=== PATIENT | female | born 1995 | race Caucasian/White ===

== ENCOUNTER 2018-10-14 19:08 | Emergency (ER) | payer OTHER ==
[~2018-10-14] VITALS: Ht 160 cm; Wt 72.6 kg
[2018-10-14 19:10] VITALS: BP 112/76
--- NOTE | 2018-10-14 20:39 | PHYS DOC ---
Past Medical History Past Medical History: No Pertinent History Past Surgical History: No Surgical History Alcohol Use: None Drug Use: None Adult General Chief Complaint Chief Complaint: FINGER INJURY [facility] HPI Patient is a 23-year-old female who presents with complaint of injury to her right thumb that she sustained while at work today. Patient states that she was using a piece of equipment had been hooked up incorrectly and had accidentally got her thumb crushed. She rates pain as being moderate in her thumb. Patient does indicate that she is 23 weeks . She denies any other injuries. Review of Systems Review of Systems Constitutional: Denies fever or chills [] Respiratory: Denies cough or shortness of breath [] Cardiovascular: No additional information not addressed in HPI [] Musculoskeletal: Complains of right thumb pain [] Integument: Denies rash or skin lesions [] Allergies Allergies Allergies Coded Allergies Type Severity Reaction Last Updated Verified No Known Drug Allergies 10/14/18 No Physical Exam Physical Exam Constitutional: Well developed, well nourished, no acute distress, non-toxic appearance. [] Cardiovascular: Regular rate and rhythm[] Lungs & Thorax: Bilateral breath sounds clear to auscultation [] Skin: Warm, dry, no erythema, no rash. [] Extremities: Right thumb demonstrates tenderness to palpation with small amount of ecchymosis and very small subungual hematoma. [] Neurologic: Alert and oriented X 3, normal motor function, normal sensory function, no focal deficits noted. [] Current Patient Data Vital Signs Vital Signs Date Time Temp Pulse Resp B/P (MAP) Pulse Ox O2 Delivery O2 Flow Rate FiO2 10/14/18 19:10 98.6 72 16 112/76 (88) 99 Room Air 98.6 EKG EKG [] Radiology/Procedures Radiology/Procedures [] Impressions: X-ray right thumb demonstrates no acute bony abnormalities. Course & Med Decision Making Course & Med Decision Making Pertinent Labs and Imaging studies reviewed. (See chart for details) [] Dragon Disclaimer Dragon Disclaimer This electronic medical record was generated, in whole or in part, using a voice recognition dictation system. Departure Departure Impression: Primary Impression: Crushing injury of thumb, right Disposition: 01 HOME, SELF-CARE Condition: STABLE Referrals: UNKNOWN PCP NAME (PCP) Patient Instructions: Crush Injury, Fingers or Toes Problem Qualifiers Primary Impression: Crushing injury of thumb, right Encounter type: initial encounter Qualified Codes: S67.01XA - Crushing injury of right thumb, initial encounter HEYDI HURLEY Jr. DO Oct 14, 2018 20:39
--- NOTE | 2018-10-15 09:08 | RAD ---
THREE VIEWS right FINGER Clinical History: RIGHT THUMB PAIN AFTER SMASHING FINGER TODAY Technique: AP view of the hand, as well as lateral and AP collimated views of the thumb were obtained. Comparison: None. Findings: There is no acute fracture or dislocation. There is no radiopaque foreign body. The soft tissues are normal. IMPRESSION: No acute fracture. Electronically signed by: Edison Walton MD (10/15/2018 9:04 AM) [id number]
== END 2018-10-14 22:35 | disposition home or self-care (01) ==
LOC: ER 19:08
DX: S67.01XA Crushing injury of right thumb, initial encounter (principal); W23.0XXA Caught, crushed, jammed, or pinched between moving objects, initial encounter; Y93.89 Activity, other specified; Y92.89 Other specified places as the place of occurrence of the external cause; Y99.8 Other external cause status
CPT/HCPCS: 73140; 99283